=== PATIENT | male | born 1995 | race Caucasian/White ===

== ENCOUNTER 2024-03-04 07:13 | Emergency (ER) | payer MEDICAID ==
[~2024-03-04] VITALS: Ht 165.1 cm; Wt 80.0 kg
[2024-03-04 07:29] VITALS: O2SAT 98
[2024-03-04 07:48] VITALS: TEMP 98.1; O2SAT 100
[2024-03-04 09:15] VITALS: BP 160/98; PULSE 95; RESP 18
[2024-03-04] MEDS ORDERED: BENZ1LOZ73 MT (09:15)
[2024-03-04] MEDS: AMOXICILLIN 500MG CAPSULE PO ONE (09:15)
[2024-03-04] MEDS: IBUPROFEN 600MG TABLET PO ONE (09:15)
[2024-03-04] MEDS ORDERED: AMOX-494 MT (09:15)
[2024-03-04] MEDS: THROAT LOZENGES-BENZOCAINE/MENTH/CETYLPYRD CL LOZENGES MM PRN (09:16)
== END 2024-03-04 09:47 | disposition home or self-care (01) ==
LOC: ER 07:13
DX: J03.00 Acute streptococcal tonsillitis, unspecified (principal); I10 Essential (primary) hypertension
CPT/HCPCS: 87430; 87070; 99283; Z7610 ×2